=== PATIENT | male | born 1985 | race Caucasian/White ===

== ENCOUNTER 2016-05-10 12:19 | Emergency (ER) | payer SELFPAY ==
[2016-05-10 12:35] VITALS: BP 139/77
--- NOTE | 2016-05-10 13:12 | ERNOTE ---
ENT HPI Date of Service: 05/10/16 Presenting Symptoms: dental pain Time Seen by Provider: 05/10/16 13:11 Source: patient, RN notes reviewed Exam Limitations: no limitations - Immun/Allergies/Home Medications Allergies/Adverse Reactions: Allergies Allergy/AdvReac Type Severity Reaction Status Date / Time No Known Allergies Allergy Verified 05/10/16 12:35 Home Medications: HOME MEDICATIONS Amox Tr/Potassium Clavulanate [Augmentin 875-125 Tablet] 875 mg PO Q12H #20 tab 05/10/16 [Last Taken Unknown] HYDROcodone/ACETAMINOPHEN [Superior 5-325] 1 tab PO Q6H PRN #12 tab 05/10/16 [Last Taken Unknown] Ibuprofen [Motrin] 600 mg PO Q6H PRN #40 tab 05/10/16 [Last Taken Unknown] - History of Present Illness Narrative: 31 y/o male ambulatory to ED for dental pain and facial swelling. He has had pain in the left maxillary region for several days. He also has chronic decay in with several fractured teeth in the left upper jaw. He began having severe swelling in the maxillary region yesterday. He has been taking Tylenol and ibuprofen with little improvement in pain. He also reports chills and sweats. He has not seen a dentist for at least 2 years. He did not contact a dentist because he does not have insurance. ENT Location: Present: dental, facial Prearrival Treatment: Present: over the counter meds Associated Symptoms - ENT: Reports: malaise, poor solid intake, facial pain/ swelling, tooth pain, headache. Denies: poor fluid intake, cough, sore throat, nasal congestion/drainage, jaw swelling Prior Treament: Denies: recently seen Review of Systems - Review of Systems Constitutional: Present: chills, diaphoresis, malaise EYE: Absent: eye pain, vision changes ENT: Present: See HPI Respiratory: Present: See HPI Cardiology: Present: no symptoms reported Gastrointestinal/Abdominal: Absent: nausea, vomiting Genitourinary: Present: no symptoms reported Musculoskeletal: Present: no symptoms reported Neurological: Present: See HPI Endocrine: Present: no symptoms reported Hematologic/Lymphatic: Present: no symptoms reported Psych: Present: no symptoms reported - Patient's Past Medical History Patient History - Medical: No pertinent hx Patient History - Cardiac/Respiratory: No pertinent hx Patient History - Cancer: No Hx of Cancer Patient History - Surgical Procedures: Other - Hip surgery - Social History Living Situations: home Smoking Status: Current every day smoker Have you smoked in the past 12 months: Yes Alcohol Use: none Physical Exam - Physical Exam General Appearance: Present: wd/wn, alert, mild distress, other - disheveled Eye Exam: Normal inspection: bilateral Ears, Nose, Throat: Present: hearing grossly normal, normal pharynx, other - severe left maxillary swelling and tenderness, widespread dental decay and numerous broken teeth. Absent: abnormal TM (R), abnormal TM (L), nasal congestion, sinus pain/drainage Neck: Present: normal inspection, nontender, supple Respiratory: Present: no respiratory distress, normal breath sounds, no accessory muscle use, lungs clear Cardiovascular/Chest: Present: regular rate, rhythm, no murmur Neurological Exam: Present: alert, oriented, normal mood/affect, no motor/ sensory deficits Skin Exam: Present: normal color, warm/dry ED Progress - Results and Orders Patient's Lab Results:: I have reviewed the patient's lab results. - Vital Signs Patient's Vital Signs:: I have reviewed the patient's vital signs. Vital Signs: Vital Signs 05/10/16 12:33 Temperature 35.7 C L Pulse Rate 86 Respiratory 14 Rate Blood Pressure 139/77 O2 Sat by Pulse 100 Oximetry - Progress/Reassessment Chief Complaint: Dental Problem Progress:: Improved Departure Clinical Impression: Dental abscess - Departure Disposition: Home Follow Up Needed Condition: Fair Instructions: Dental Abscess, [id number] Additional Instructions: See a dentist ANASTACIA Return for worsening symptoms Referrals: Isaac Rosario PA [Primary Care Provider] - Prescriptions: Amox Tr/Potassium Clavulanate [Augmentin 875-125 Tablet] 875 mg PO Q12H #20 tab HYDROcodone/ACETAMINOPHEN [Superior 5-325] 1 tab PO Q6H PRN #12 tab PRN Reason: Pain Ibuprofen [Motrin] 600 mg PO Q6H PRN #40 tab PRN Reason: Pain
[2016-05-10] MEDS ORDERED: HYDROcodone/ACETAMINOPHEN 1 EACH TABLET PO ONE (13:21)
[2016-05-10] MEDS ORDERED: HYDROcodone/ACETAMINOPHEN 1 EACH TABLET ONE (13:24)
[2016-05-10 13:37] LABS: Hematocrit 43.2 % (42.0-52.0); Hemoglobin 14.5 gm/dL (13.5-18.0); Mean Cell Volume 93.1 fl (78-100); Mean Corpuscular Hemoglobin 31.3 pg (27-31); Mean Corpuscular Hgb Conc 33.6 g/dl (32-36); Neutrophil # 8.3 K/mm3 (1.3-6.0); Neutrophil % 67.2 % (42-75.0); Platelet Count 362 K/mm3 (150-450); Red Blood Count 4.64 M/mm3 (4.7-6.0); Red Cell Distribution Width 13.4 % (11.5-14.0); White Blood Count 12.3 K/mm3 (4.0-10.5)
[2016-05-10 13:51] LABS: Albumin * 3.8 gm/dl (3.4-5.0); Anion Gap 13.9 mmol/L (6.8-13.8); BUN/Creatinine Ratio 10.6 (9.0-21.6); Bilirubin, Total 0.3 mg/dL (0.0-1.1); Ca. Corrected For Albumin 8.7 mg/dL (8.4-10.2); Calcium * 8.9 mg/dL (7.9-10.9); Carbon Dioxide 26.7 mmol/L (24-32.6); Potassium 3.6 mmol/L (3.4-4.6); Total Protein 7.4 gm/dL (6.2-8.2)
== END 2016-05-10 14:32 | disposition home or self-care (01) ==
LOC: ER 12:19
DX: K04.7 Periapical abscess without sinus (principal); F17.210 Nicotine dependence, cigarettes, uncomplicated

== ENCOUNTER 2016-09-10 11:51 | Emergency (ER) | payer SELFPAY ==
--- OUTSIDE RECORDS SUMMARY | 2016-09-10 12:33 | XMS REPORT | Continuity of Care Document ---
:1985 Author Organization [facility] ([facility]) Address [address] [place] [address] Phone [phone] Care Team Providers Name Role Phone GustavoDlilonLevy Watt Primary Care Provider [phone] Source Comments This disclosure is being made pursuant to the Care Everywhere program, applicable federal and state laws, and may not contain all informaitonavailable regarding this patient.[facility] ([facility]) Active Allergies and Adverse Reactions Allergen Noted Date Severity Reactions Comments Nsaids (Non-Steroidal 08/30/2009 Nausea & Multiple NSAID's Anti-Inflammatory Vomiting,Stomach cause stomach pain Drug) Pain,Other and nausea. Dx Non-Immunologic gastric ulcer Reaction Current Medications Prescription Sig. Disp. Refills Start Date End Date Status traMADol 50 mg tablet Take 1 Tab by mouth 4 45 Tab 0 06/19/2011 Active times daily as needed. Indications: Pain oxyCODONE-acetaminophe Take 1-2 Tabs by 40 Tab 0 06/21/2011 Active n 5-325 mg per tablet mouth every 4 hours as needed for Pain. Indications: Pain hydrOXYzine pamoate Take 1 Cap by mouth 40 Cap 0 06/21/2011 Active (VISTARIL) 25 mg every 4 hours as capsule needed. Indications: muscle spasms docusate 100 mg Take 1 Cap by mouth 2 60 Cap 3 06/21/2011 Active capsule times daily. Indications: Constipation Active Problems Problem Noted Date Osteochondroma 06/19/2011 Social History Tobacco Use Types Packs/Day Years Used Date Current Every Day Smoker Cigarettes 1 Smokeless Tobacco: Never Used Tobacco Cessation:Ready to Quit: Yes; Counseling Given: Yes Comments: Alcohol Use Drinks/Week oz/Week Comments No Last Filed Vital Signs Vital Sign Reading Time Taken Blood Pressure 123/82 06/21/2011 10:15 AM BODY PRESSER Pulse 89 06/21/2011 6:10 AM BODY PRESSER Temperature 35.9 C (96.6 F) 06/21/2011 8:45 AM BODY PRESSER Respiratory Rate 16 06/21/2011 6:10 AM BODY PRESSER Height 1.74 m (5' 8.5") 06/21/2011 6:10 AM BODY PRESSER Weight 68.965 kg (152 lb 0.6 oz) 06/21/2011 6:10 AM BODY PRESSER Body Mass Index 22.78 06/21/2011 6:10 AM BODY PRESSER Oxygen Saturation 96% 06/21/2011 9:45 AM BODY PRESSER Plan of Care Health Maintenance Due Date Last Done Comments Hepatitis B Vaccine (1 of 3 - Primary Series) 1984 Tdap Vaccine 1995 Lipid Disorder Screening 2002 MMR Vaccine 2002 Td Vaccine 2002 Varicella Vaccine (1 of 2 - Adult - No Evidence of 2002 Immunity) Pneumococcal Vaccine (1 of 1 - PPSV23) 2003 Influenza Vaccine: Seasonal (#1) 11/22/2015 Results from Last 3 Months Not on file
[2016-09-10 12:59] VITALS: BP 130/68
--- NOTE | 2016-09-10 13:04 | ERNOTE ---
Medical Problem HPI - Narrative Date of Service: 09/10/16 - General Chief Complaint: General Assessment Time Seen by Provider: 09/10/16 12:24 Source: patient Exam Limitations: no limitations - Immun/Allergies/Home Medications Immunizations: IMMUNIZATION HX Immunizations Up to Date Yes History of Influenza Vaccine No Allergies/Adverse Reactions: Allergies No Known Allergies Allergy (Verified 05/10/16 12:35) Home Medications: HOME MEDICATIONS Ibuprofen [Motrin] 600 mg PO Q6H PRN #40 tab 05/10/16 [Last Taken Unknown] Naproxen [Naprosyn] 500 mg PO BID #14 tablet 09/10/16 [Last Taken Unknown] - Pain Score Pain Score #1 Pain Score: 9 - History of Present History Narrative: Patient is a 31 year old male who presents to the ED with complaints of left anterior chest wall pain. Patient states he "popped a pimple on his chest area " Sunday and felt his finger push thru his chest causing immediate pain. States he feels his ribs clicking "where the rib meets the breastbone". Patient states pain is worse when he breaths in, sneezes or coughs. States pain is less when he allows his left arm to relax against the side of his body. Has not attempted anything for the pain. Did see a physician at [facility] and was told "there was nothing wrong". No obvious signs of respiratory difficulty or distress. Is able to talk in full complete sentences Date (Duration): 09/04/16 Timing: constant, getting worse Severity: moderate Modifying Factors - (Improves): Present: immobilization Modifying Factors - (Worsens): Present: movement, other - coughing/sneezing/ deep breathing Review of Systems - Review of Systems Constitutional: Present: no symptoms reported. Absent: recent illness, fever, chills EYE: Present: no symptoms reported ENT: Present: no symptoms reported Respiratory: Present: no symptoms reported Cardiology: Present: chest pain - left upper anterior chest wall area , 3rd rib area Gastrointestinal/Abdominal: Present: no symptoms reported Genitourinary: Present: no symptoms reported Musculoskeletal: Present: no symptoms reported Skin: Present: no symptoms reported Neurological: Present: no symptoms reported Endocrine: Present: no symptoms reported Hematologic/Lymphatic: Present: no symptoms reported Psych: Present: no symptoms reported - Patient's Past Medical History Patient History - Medical: No pertinent hx, Other Patient History - Cardiac/Respiratory: Other Patient History - Cancer: No Hx of Cancer Patient History - Surgical Procedures: Other Patient History - Other: None - Social History Living Situations: home Psych History: No pertinent hx Smoking Status: Current every day smoker Have you smoked in the past 12 months: Yes Alcohol Use: none Drug Use: none - Immunizations Immunizations Up to Date: Yes History of Influenza Vaccine: No Physical Exam - Physical Exam General Appearance: Present: wd/wn, alert, no apparent distress Eye Exam: Normal inspection: bilateral, PERRL: bilateral Ears, Nose, Throat: Absent: dry mucous membranes Neck: Present: normal inspection, nontender, supple, full range of motion. Absent: lymphadenopathy (R), lymphadenopathy (L) Respiratory: Present: no respiratory distress, normal breath sounds, no accessory muscle use, chest nontender, lungs clear, chest tenderness - right anterior upper chest wall area Cardiovascular/Chest: Present: regular rate, rhythm, no murmur, normal peripheral pulses Peripheral Pulses: N=norm/S=strong/W=weak/B=bound/A=absent: Carotid (R): Normal , Carotid (L): Normal, Radial (R): Normal, Radial (L): Normal Gastrointestinal/Abdominal: Present: normal bowel sounds, nontender, nondistended, soft, no organomegaly Rectal Exam: Present: deferred Male Genitals Exam: Present: deferred Back Exam: Present: normal inspection, normal range of motion Extremity Exam: Present: normal inspection, non-tender, normal range of motion, no edema Neurological Exam: Present: alert, oriented, normal mood/affect, no motor/ sensory deficits Skin Exam: Present: normal color, warm/dry Lymphatic Exam: Present: no adenopathy ED Progress - Vital Signs Patient's Vital Signs:: I have reviewed the patient's vital signs. Vital Signs: Vital Signs 09/10/16 11:57 Temperature 37.1 C Pulse Rate 90 Respiratory 16 Rate Blood Pressure 139/77 O2 Sat by Pulse 100 Oximetry - Progress/Reassessment Chief Complaint: General Assessment Departure - Departure Clinical Impression: Costochondral chest pain, Rib pain on left side Disposition: Home self-care Condition: Good Instructions: Costochondritis, [id number], Heat Therapy, Chest Wall Pain Additional Instructions: Splint chest wall area with pillow while coughing. Take pain medications as directed and with food. Moist heat to area multiple times a day. Return to ED if shortness of breath or increased work of breathing occur Referrals: NONE,NONE [Primary Care Provider] - Levy Irizarry MD [Staff Physician] - Prescriptions: Naproxen [Naprosyn] 500 mg PO BID #14 tablet
== END 2016-09-10 12:57 | disposition home or self-care (01) ==
LOC: ER 11:51
DX: R07.89 Other chest pain (principal); R07.81 Pleurodynia